=== PATIENT | male | born 2000 | race Caucasian/White ===

== ENCOUNTER 2023-07-26 20:18 | Emergency (ER) | payer SELFPAY ==
[~2023-07-26] VITALS: Ht 177.8 cm; Wt 79.5 kg
[2023-07-26 20:29] VITALS: TEMP 98.8
[2023-07-26] MEDS ORDERED: NS 1,000 ML IV ONE (21:45)
[2023-07-26] MEDS ORDERED: diphenhydrAMINE 50 MG/ML 1 ML VIAL IV ONE (21:45)
[2023-07-26] MEDS ORDERED: Ketorolac 30 MG/ML VIAL IV ONE (21:45)
[2023-07-26 21:54] LABS: BASO # 0.1 K/mm3 (0.0-0.2); BASO % 0.7 % (0.0-2.0); EOS # 0.6 K/mm3 (0.0-0.7); EOS % 4.5 % (0.0-4.0); GRAN # 7.5 K/mm3 (1.4-6.5); GRAN % 57.4 % (42.2-75.2); HEMATOCRIT 44.9 % (36.0-47.0); HEMOGLOBIN 15.6 g/dl (12.5-16.1); LYMPH # 3.8 K/mm3 (1.2-3.4); LYMPH % 29.2 % (20.0-51.0); MEAN CELL VOLUME 87 fl (80.0-95.0); MEAN CORPUSCULAR HEMOGLOBIN 30 pg (26-32); MEAN CORPUSCULAR HGB CONC 35 g/dl (33.0-37.0); MEAN PLATELET VOLUME 9.6 fl (7.4-10.4); MONO % 7.7 % (1.7-9.3); PLATELET COUNT 328 K/mm3 (130-400); RED BLOOD COUNT 5.18 M/mm3 (4.20-5.60); REDCELL DISTRIBUTION WIDTH-CV 12.5 % (11.5-14.5)
[2023-07-26 21:59] LABS: ALBUMIN 4.4 gm/dL (3.5-5.0); BILIRUBIN,TOTAL 0.7 mg/dL (0.2-1.2); C-REACTIVE PROTEIN 0.19 mg/dL (0.00-0.50); CREATININE, serum 1.07 mg/dL (0.72-1.25); POTASSIUM 3.3 mmol/L (3.5-4.5); TOTAL PROTEIN 7.7 gm/dL (6.2-8.1)
[2023-07-26 23:22] VITALS: BP 122/78; PULSE 64
== END 2023-07-26 23:23 | disposition home or self-care (01) ==
LOC: COL.ER 20:18
PROVIDERS: Nurse Practitioner
DX: R51.9 Headache, unspecified (principal); R20.2 Paresthesia of skin
CPT/HCPCS: J1200; J1885; J2765; J7030